=== PATIENT | female | born 1945 | race Caucasian/White ===

== ENCOUNTER 2017-01-23 10:51 | Emergency (ER) | payer MEDICARE ==
[~2017-01-23] VITALS: Ht 157.5 cm; Wt 54.4 kg
--- NOTE | ~2017-01-23 | EKG ---
PATIENT: SIOMARA DAY UNIT #: [id number] Ventricular Rate: 67 BPM Atrial Rate: 67 BPM P-R Interval: 154 ms QRS Duration: 78 ms Q-T Interval: 420 ms QTC Calculation(Bezet): 443 ms P [place]: 19 degrees Calculated R [place]: 14 degrees Calculated T [place]: 64 degrees Diagnosis Line: Normal sinus rhythm Diagnosis Line: Normal ECG Diagnosis Line: No previous ECGs available Diagnosis Line: Confirmed by CAROL DAIGLE MD ([id number]) on 01/23/2017 Diagnosis Line: 7:25:14 PM INTERPRETING MD: OXANA FERREIRA
--- NOTE | ~2017-01-23 | CR72 ---
[facility] A Service of [facility] & [facility] RADIOLOGY TEXT RESULTS PATIENT: SIOMARA DAY LOCATION: [facility] : 47 UNIT #: [id number] AGE: [address]: Ira Nguyen MD SEX: F ORDER DR: [id number] [facility] [address] [place], [place] [address] [id number] E MR#: [id number] Acc #: [id number] NAME: SIOMARA DAY. : 1945 SEX: F STUDY DATE/TIME: 01/23/2017 13:41 UNIT: [facility] ROOM: STUDY DESCRIPTION: CR Chest Single View Portable Attending Physician: Ira Nguyen M.D. Ordering Physician: Ira Nguyen M.D. Primary Care Physician: Primary Care Physician No MEDICAL IMAGING REPORT This report is preliminary unless electronic signature is present EXAM Portable chest HISTORY Shortness of air, near-syncopal episode today. FINDINGS Portable view of the chest demonstrates mild pulmonary hyperinflation. No infiltrates or effusions. Mild cardiomegaly. Mediastinum great vessels unremarkable. Osseous structures unremarkable for age. No pneumothorax. Dictated by... Filemon Smith M.D. THIS IS AN ELECTRONICALLY VERIFIED REPORT Filemon Smith M.D. at 01/24/2017 4:49 PM BLAYNE/cammy TD: 01/23/2017 19:45 JOB #: [id number] MEDICAL IMAGING REPORT Page 1 of 1 COPY
--- NOTE | ~2017-01-23 | CT71 ---
[facility] A Service of [facility] RADIOLOGY TEXT RESULTS PATIENT: SIOMARA DAY LOCATION: [facility] : 47 UNIT #: [id number] AGE: [address]: Ira Nguyen MD SEX: F ORDER DR: [id number] [address] [address] [id number] E MR#: [id number] Acc #: [id number] NAME: SIOMARA DAY. : 1945 SEX: F STUDY DATE/TIME: 01/23/2017 14:57 UNIT: [facility] ROOM: STUDY DESCRIPTION: CT Head Wo Contrast Attending Physician: Ira Nguyen M.D. Ordering Physician: Ira Nguyen M.D. Primary Care Physician: No Primary Care Physician MEDICAL IMAGING REPORT This report is preliminary unless electronic signature is present EXAM Head CT, no contrast. DATE OF STUDY 01/23/2017 PROCEDURE Axial unenhanced head CT. This CT exam was performed with one or more of the following radiation dose reduction techniques: automatic exposure control, adjustment of mA and/or kV according to patient size, and iterative reconstruction. COMPARISON None. CLINICAL HISTORY Near syncope with dizziness, fall this morning at home. FINDINGS There is no intracranial hemorrhage. There are nonspecific white matter changes, but fairly symmetric. There is no hydrocephalus or extraaxial fluid collection. The extracranial soft tissues, skull base, and calvaria are normal except for intracranial atherosclerotic vascular calcifications. IMPRESSION No acute abnormality. Nonspecific white matter changes, no acute findings. Dictated by... Mihir Peck M.D. [facility] A Service of [facility] RADIOLOGY TEXT RESULTS PATIENT: SIOMARA DAY LOCATION: [facility] : 47 UNIT #: [id number] AGE: [address]: Ira Nguyen MD SEX: F ORDER DR: THIS IS AN ELECTRONICALLY VERIFIED REPORT Mihir Peck M.D. at 01/31/2017 4:56 PM TEV/jt TD: 01/23/2017 21:10 JOB #: [id number] MEDICAL IMAGING REPORT Page 1 of 1 COPY
[2017-01-23 11:48] LABS: BASOPHIL# 0.1 X10e3 (0-0.3); BASOPHIL% 0.9 % (0-2.5); EOSINOPHIL# 0.1 X10e3 (0-0.7); EOSINOPHIL% 0.8 % (0.0-7.0); HEMATOCRIT 36.6 % (35.0-45.0); HEMOGLOBIN 12.5 gm/dL (12.0-16.0); LYMPHOCYTE# 1.2 X10e3 (1.0-3.5); LYMPHOCYTE% 14.3 % (17.0-45.0); MEAN CELL VOLUME 93.4 FL (83-96); MEAN CORPUSCULAR HEMOGLOBIN 31.9 PG (28-34); MEAN CORPUSCULAR HGB CONC 34.1 g/dL (30-36); MONOCYTE# 0.5 X10e3 (0-1.0); MONOCYTE% 6.2 % (3.0-12.0); NEUTROPHIL# 6.8 X10e3 (1.5-7.1); NEUTROPHIL% 77.8 % (40-75); PLATELET COUNT 397 X10e3 (140-420); RED BLOOD COUNT 3.92 X10e (3.90-5.30); RED CELL DISTRIBUTION WIDTH 13.7 % (11.0-15.5); WHITE BLOOD COUNT 8.7 X10e3 (4.0-10.5)
[2017-01-23 11:49] LABS: DIFF IND NO
[2017-01-23 12:18] LABS: ALBUMIN SERUM 4.5 g/dL (3.5-5.0); BILIRUBIN, DIRECT 0.1 mg/dL (0.0-0.2); BILIRUBIN,INDIRECT 0.4 mg/dL (0.0-0.9); BILIRUBIN,TOTAL 0.5 mg/dL (0.2-2.0); CALCIUM SERUM 9.3 mg/dL (8.4-10.2); CREATININE SERUM 0.8 mg/dL (0.6-1.4); GLOM FILT RATE Estimated 74.2 mL/min (>60); POTASSIUM 4.4 mmol/L (3.5-5.1); PROTEIN TOTAL SERUM 7.8 g/dL (6.0-8.3)
[2017-01-23 13:33] LABS: POC - CKMB 1.5 ng/mL (0.0-7.9); POC - TROPONIN <0.05 ng/mL (<=0.05)
[2017-01-23 14:01] LABS: POC - CKMB <1.0 ng/mL (0.0-7.9); POC - TROPONIN <0.05 ng/mL (<=0.05)
[2017-01-23 14:56] LABS: URINE SOURCE CLEAN CATCH
[2017-01-23 15:07] LABS: URINE APPEARANCE CLEAR; URINE BILIRUBIN NEG (NEG); URINE BLOOD NEG (NEG); URINE COLOR YELLOW; URINE GLUCOSE NEG (NEG); URINE KETONE NEG (NEG); URINE LEUKOCYTE ESTERASE TRACE (NEG); URINE NITRATE NEG (NEG); URINE PROTEIN NEG (NEG); URINE SPECIFIC GRAVITY 1.005 (1.003-1.035); URINE UROBILINOGEN 0.2 MG/DL (NEG)
[2017-01-23 15:08] LABS: CULTURE INDICATED? YES; U HYALINE CASTS AUWI 0-2 /[LPF]; URBCS1 AUWI 0-2 /[HPF] (0-2); URINE BACTERIA AUWI 2+ (NEGATIVE); URINE SQUAMOUS EPITHELIAL CELL FEW /[HPF]
== END 2017-01-23 16:33 | disposition home or self-care (01) ==
LOC: CED 10:51
PROVIDERS: Emergency Medicine
DX: I10 Essential (primary) hypertension (principal); N39.0 Urinary tract infection, site not specified; F17.200 Nicotine dependence, unspecified, uncomplicated; Z88.0 Allergy status to penicillin
CPT/HCPCS: 36415; 70450; 71010; 80048; 80076; 81003; 82553; 84484; 85025; 87086; 93005; 99284; G0480